=== PATIENT | female | born 1950 | race Caucasian/White ===

== ENCOUNTER → 2017-05-21 | Day surgery (SDC) | payer MEDICARE ==
[~2017-05-21] VITALS: Ht 154.9 cm; Wt 56.2 kg
[~2017-05-21] MED LIST: ACYC1CAP16 PO; BUPIVACAINE HCL PF 0.5% 30 ML VIAL ONE; BUPR100T4 PO; CHLORHEXIDINE GLUCONATE 2 % 1 PACK (2 CLOTHS) TOPICAL PRN; CYCL1TAB29 PO; DEXT 5%-NACL 0.45% 1000 ML INJ 1,000 ML IV SCH; IBUP800T23 PO; INSULIN HUMAN REGULAR 1,000 UNITS/10 ML VIAL SQ PRN; LACTATED RINGER'S 1000 ML IV PRN; LEVO88TA2 PO; LIDOCAINE HCL 2% 50 ML VIAL ONE; MECL-62 PO; METOPROLOL TARTRATE 25 MG TAB PO PRN; MIDAZOLAM HCL 2 MG/2 ML VIAL ONE; OXYB5TAB10 PO; POVIDONE IODINE 10% OINT 1 PACKET TOPICAL ONE; POVIDONE IODINE 5% (ANTISEPSIS KIT) 4 APPLICATIONS EACH NARE PRN; PROPOFOL 200 MG/20 ML AMP IV ONE; PROT40TA PO; SIMV20TA PO; SODIUM CHLORID 0.9% 500 ML IV PRN; SODIUM CHLORIDE 0.9% FLUSH 5 ML FLUSH IVF PRN; SODIUM CHLORIDE 0.9% FLUSH 5 ML FLUSH IVF SCH; TRAZODONE 50 MG PO; TRIAMCINOLONE ACETONIDE 40 MG/ML VIAL ONE; [UNRECOGNIZED DRUG - CODE] PO; ceFAZolin 2 GM PREMIX 50 ML IV SCH
[2017-05-21 06:40] VITALS: BP 111/74; PULSE 73; RESP 16; TEMP 98.1; O2SAT 96
--- NOTE | 2017-05-21 08:02 | HP.UPD ---
H&P Update Date: May 21, 2017 Note The Pre-Admit History and Physical Examination regarding the above named patient was reviewed (including, but not limited to, vital signs, medications, allergies, co-morbid conditions), and upon re-examination it is noted that: Indicated with "X" x - the patient's condition has not significantly changed since the last examination. [] - the patient's condition has changed since the last examination. Changes: Velia Christy MD May 21, 2017 08:02
--- NOTE | 2017-05-21 09:24 | HHI.PR ---
Immediate Post Op Note Procedure Date: May 21, 2017 Pre Op Diagnosis: (1) Trigger finger, right little finger (2) Trigger thumb, right thumb (3) Trigger finger, right ring finger (4) Trigger finger of left hand Post Op Diagnosis: (1) Trigger finger, right little finger (2) Trigger thumb, right thumb (3) Trigger finger, right ring finger (4) Trigger finger of left hand Surgeon: Velia Christy Hr Administrative Assistant(s): None Procedure: Release of trigger fingers of the right thumb, right ring and right little fingers. Inject steroid into the left trigger thumb. Anesthesia: MAC Drains: None Tourniquet time (min at mmHg) 20 minutes at 220 mm Hg. Patient to: Other (Holding) Patient Condition: Good Date/Time of Procedure: SEE SURGICAL CARE RECORD Velia Christy MD May 21, 2017 09:24
[2017-05-21 09:50] VITALS: BP 119/70; PULSE 78; RESP 16; TEMP 97.6; O2SAT 97
--- NOTE | 2017-05-21 11:51 | EKG ---
Date Performed: 05/21/2017 Time Performed: 07:27:23 PTAGE: 67 years EKG: Sinus rhythm NORMAL ECG NO PREVIOUS TRACING DOCTOR: Humble Lee Interpretating Date/Time 05/21/2017 11:48:23
--- NOTE | 2017-05-23 10:05 | MP ---
cc: CHUY MOONEY M.D. DATE OF OPERATION 05/21/2017 PREOPERATIVE DIAGNOSES 1. Stenosing tenosynovitis of the right thumb. 2. Stenosing tenosynovitis of the right ring finger. 3. Stenosing tenosynovitis of the right fifth finger. 4. Stenosing tenosynovitis of the left thumb. POSTOPERATIVE DIAGNOSES 1. Stenosing tenosynovitis of the right thumb. 2. Stenosing tenosynovitis of the right ring finger. 3. Stenosing tenosynovitis of the right fifth finger. 4. Stenosing tenosynovitis of the left thumb. PROCEDURES 1. Release trigger finger of the right thumb. 2. Release trigger finger of the right ring finger. 3. Release trigger finger of the right fifth finger. 4. Injection of steroid into the left thumb A1 letty. Anesthesia is MAC. SURGEON MAC. SURGEON Chuy Mooney MD INDICATIONS A 67-year-old female with stenosing tenosynovitis of the four fingers noted above. FINDINGS At the completion of the procedure there was excellent passive motion of the fingers that were released and the steroid was injected into the left thumb A1 letty. TOURNIQUET TIME 20 minutes PROCEDURE The patient was seen preoperatively where the sites and side were identified and marked. She was then taken to the operating room, placed in a supine position. Her identity was checked against the arm band and the consent form, site and side confirmed, time-out called prior to beginning the procedure. The right upper extremity was prepped with Hibiclens and draped in the usual sterile fashion. The area be incised was outlined with a marking pen as a transverse incision over the base of the thumb as well as over the base of the fourth and fifth fingers. There was one incision designed for those last two fingers. The areas were infiltrated with bupivacaine 0.5% plain, the tourniquet was inflated to 220 mmHg. A #15 blade was then used to make a transverse incision over the A1 letty of the right thumb, down through skin, down through the subcutaneous tissue. Under loupe magnification, using a blunt dissection, the A1 letty was identified. It was then divided. The proximal area and distal areas were inspected and there was no further encumbrance of the tendon. Attention was then turned to the fourth and fifth fingers were incision was made down through skin, down through the subcutaneous tissue. Under loupe magnification using blunt dissection, the A1 letty was identified and divided. The area was inspected for proximal pulleys and passive range of motion was noted to be unencumbered. Attention was then turned the fifth finger where the A1 letty was identified. It was then divided. Proximal pulleys were also divided. The finger was put through a full range of motion. There was no encumbrance. All wounds were then copiously irrigated with saline and closed with running 5-0 nylon suture. Once the wounds were closed, the tourniquet was released after 20 minutes of tourniquet time, pressure was applied. After several minutes there was no evidence of any oozing and a dressing was applied using povidone-iodine ointment, Adaptic, Telfa, 4x4s and hand wrap. Attention was then turned to the left thumb which was prepped with alcohol and injected with bupivacaine 0.5% plain. Once the anesthetic was injected, 0.3 mL of Kenalog 40 was injected into the A1 letty. Once this was completed the area was cleansed and a Band-Aid was applied. The patient was then taken from the operating room to the recovery room in satisfactory condition having tolerated the procedure well. Postoperative instructions include keeping her hand elevated, keeping it clean and dry and returning in several days for followup. The patient has 800 of ibuprofen at home and has been instructed to take it as needed but to begin tonight, even though the anesthetic may not have worn off. The patient understands these instructions. MD CHRISTOPHER Munguia/JUAN DAVID /9:31 AM /9:50 AM
== END | disposition home or self-care (01) ==
LOC: PHSDC 06:15
PROVIDERS: ATTEND Specialist
DX: M65.311 Trigger thumb, right thumb (principal); M65.341 Trigger finger, right ring finger; M65.351 Trigger finger, right little finger; M65.312 Trigger thumb, left thumb; E03.9 Hypothyroidism, unspecified; E78.5 Hyperlipidemia, unspecified; Z01.810 Encounter for preprocedural cardiovascular examination
CPT/HCPCS: 01810; 20550; 26055; 93005; J0690; J2250; J3301; J7120